=== PATIENT | male | born 1985 | race Caucasian/White ===

== ENCOUNTER 2017-07-24 15:14 | Emergency (ER) | payer OTHER ==
[2017-07-24 15:19] VITALS: BP 142/91; PULSE 75; TEMP 97.7; BMI 26.4
--- NOTE | 2017-07-24 15:37 | PDOC ---
History of Present Illness <Yuri Dumont - Last Filed: 07/24/17 16:46> - General History Source: Patient, Family - History of Present Illness Initial Comments: 07/24/17 16:27 CC: Left knee swelling The patient is a 32 year old male, accompanied by his father, with a significant past medical history of spinal fusion and right knee avulsion fracture who presents to the emergency department complaining of left knee swelling without trauma since yesterday. The patient reports the left knee swelling began yesterday, but when he woke up this morning, the swelling in his knee was abnormally large and unlike previous episodes. The patient describes the swelling as feeling like liquid which radiates above his knee. The patient reports a history of intermittent swelling in his left knee which resolves itself over the last 5-6 months. Of note, the patient has lower leg braces and walks with a cane. The patient denies chest pain, shortness of breath, headache, and dizziness. Denies fevers, chills, nausea, vomiting, diarrhea, and constipation. Allergies: Sulfonamide Antibiotics. Past surgical history: Spinal Fusion (L1 level), Right knee avulsion fracture Social history: Patient admits to everyday use of cigarettes. No alcohol, or drug use. <Celina Shah - Last Filed: 07/24/17 16:54> - General Chief Complaint: Pain Stated Complaint: LEFT KNEE SWELLING, PAIN Time Seen by Provider: 07/24/17 15:23 Past History - Past Medical History COPD: No - Suicide/Smoking/Psychosocial Hx Smoking History: Current some day smoker Have you smoked in the past 12 months: Yes Number of Cigarettes Smoked Daily: 1 Information on smoking cessation initiated: Yes 'Breaking Loose' booklet given: 07/24/17 Hx Alcohol Use: (social) <Yuri Dumont - Last Filed: 07/24/17 16:46> <Celina Shah - Last Filed: 07/24/17 16:54> - Past Medical History Allergies/Adverse Reactions: Allergies Allergy/AdvReac Type Severity Reaction Status Date / Time Sulfa (Sulfonamide Allergy Verified 07/24/17 15:15 Antibiotics) Home Medications: Ambulatory Orders Nabumetone 750 mg PO BID PRN #20 tablet 07/24/17 Review of Systems - Review of Systems Able to Perform ROS?: Yes Comments:: 07/24/17 16:27 CONSTITUTIONAL: Absent: Fever, Chills, Diaphoresis, Generalized Weakness, Malaise, Loss of Appetite HEENT: Absent: Rhinorrhea, Nasal Congestion, Throat Pain, Throat Swelling, Difficulty Swallowing, Mouth Swelling, Ear Pain, Eye Pain, Visual Changes CARDIOVASCULAR: Absent: Chest Pain, Syncope, Palpitations, Irregular Heart Rate, Lightheadedness , Peripheral Edema RESPIRATORY: Absent: Cough, Shortness of Breath, SOB with Exertion, Orthopnea, Wheezing, Stridor, Hemoptysis GASTROINTESTINAL: Absent: Abdominal pain, Abdominal Distension, Nausea, Vomiting, Diarrhea, Constipation, Melena, Hematochezia GENITOURINARY: Absent: Dysuria, Frequency, Urgency, Hesitancy, Flank Pain, Genital Pain MUSCULOSKELETAL: (+)Swelling in left knee. Absent: Myalgia, Arthralgia, Back pain, Neck Pain SKIN: Absent: Rash, Itching, Pallor HEMEATOLOGIC/IMMUNOLOGIC: Absent: Easy Bleeding, Easy Bruising, Lymphadenopathy, Frequent infections ENDOCRINE: Absent: Unexplained Weight Gain, Unexplained Weight Loss, Heat Intolerance, Cold Intolerance NEUROLOGIC: Absent: Headache, Focal Weakness, Paresthesias, Vertigo, Lightheadedness, Seizure, Mental Status Changes, Incontinence PSYCHIATRIC: Absent: Anxiety, Depression <Celina Shah - Last Filed: 07/24/17 16:54> *Physical Exam - Vital Signs Last Vital Signs Temp Pulse Resp BP Pulse Ox 97.7 F 75 18 142/91 97 07/24/17 15:15 07/24/17 15:15 07/24/17 15:15 07/24/17 15:15 07/24/17 15:15 <Yuri Dumont - Last Filed: 07/24/17 16:46> - Vital Signs Last Vital Signs Temp Pulse Resp BP Pulse Ox 97.7 F 75 18 142/91 97 07/24/17 15:15 07/24/17 15:15 07/24/17 15:15 07/24/17 15:15 07/24/17 15:15 - Physical Exam Comments: GENERAL: The patient is awake, alert, and fully oriented, in no acute distress. HEAD: Normal with no signs of trauma. EYES: Pupils equal, round and reactive to light, extraocular movements intact, sclera anicteric, conjunctiva clear. EXTREMITIES: (+)Lower leg braces bilaterally. (+)Right knee normal in appearance with normal range of motion. (+) Left knee edema. (+)Supra and infrapatellar effusion. (+)Left knee can extend to 170 degrees and can flex to 75 degrees. No erythema. No Warmth. Normal range of motion for upper extremities. NEUROLOGICAL: Normal speech, normal gait. PSYCH: Normal mood, normal affect. SKIN: Warm, Dry, normal turgor, no rashes or lesions noted. <Celina Shah - Last Filed: 07/24/17 16:54> ED Treatment Course - Medications Given in the ED: ED Medications Discontinued Medications Generic Name Dose Route Start Last Admin Trade Name Freq PRN Reason Stop Dose Admin Naproxen 375 mg 07/24/17 16:03 07/24/17 16:25 Naprosyn - PO 07/24/17 16:04 375 mg ONCE ONE Administration <Celina Shah - Last Filed: 07/24/17 16:54> Medical Decision Making - Medical Decision Making 07/24/17 16:46 Patient is a 32-year-old man with a history of an L1 spinal cord injury at age 19. Since that time he has weakness in his lower legs and he wears braces. This puts additional strain on his knees. He has a history of a right knee avulsion fracture treated with arthroscopic surgery. He has been having intermittent left knee swelling on and off over the last 5-6 months. It is generally mild and resolved within a few days. He now has swelling of the left knee for 2 days without any history of trauma. The swelling is more than the previous time so he decided to come to the emergency room. There is no fever or chills, there is no erythema, and there is no history of recent infection. On examination, there is a left knee effusion present. There is no increased warmth, and there is no erythema. Range of motion is mildly decreased. The effusion is not tense. There is no ligament laxity 4. 2 views of the left knee show no fracture or dislocation upon my preliminary review. Final radiology reading is pending at the time of discharge with ER follow-up process activated. Impression: Left knee effusion without signs of infection. Probably ligamentous injury due to increased strain in the setting of prior spinal cord injury with lower extremity weakness below the knees. Patient has been advised to rest, elevate the knee, apply ice packs, take nabumetone, and to follow-up with orthopedic surgery. <Yuri Dumont - Last Filed: 07/24/17 16:46> *DC/Admit/Observation/Transfer - Discharge Dispostion Admit: No <Yuri Dumont - Last Filed: 07/24/17 16:46> - Attestations Scribe Attestion: Documentation prepared by Celina Shah, acting as medical billing clerk for Yuri Dumont MD. <Celina Shah - Last Filed: 07/24/17 16:54> Diagnosis at time of Disposition: Effusion, left knee - Discharge Dispostion Disposition: HOME Condition at time of disposition: Stable - Prescriptions Prescriptions: Nabumetone 750 mg PO BID PRN #20 tablet PRN Reason: knee swelling or pain - Referrals Referrals: Rafat Mann MD [Staff Physician] - 3 days - Patient Instructions Printed Discharge Instructions: DI for Knee Effusion Additional Instructions: You were evaluated today for swelling of the left knee. Your examination shows a buildup of fluid in the knee joint. There is no sign of infection. X-ray showed no fracture. You're advised to elevate the knee, rest as much as possible, apply ice packs for 20-30 minutes every few hours, and take nabumetone twice a day for its anti-inflammatory effect. Follow-up with Dr. Mann, orthopedic surgery, within a few days. Return to the emergency department for any severe or progressive symptoms.
[2017-07-24] MEDS ORDERED: NAPROXEN 375 MG TABLET (FP) PO ONE (16:03)
[2017-07-24] MEDS ORDERED: NAPROXEN 375 MG TABLET (FP) ONE (16:15)
== END 2017-07-24 17:00 | disposition home or self-care (01) ==
LOC: FER 15:14
DX: M25.462 Effusion, left knee (principal); F17.210 Nicotine dependence, cigarettes, uncomplicated
CPT/HCPCS: 73560-TC-LT-FY; 99282-25

== ENCOUNTER 2018-06-08 16:16 | Emergency (ER) | payer OTHER ==
[2018-06-08 16:40] VITALS: BP 141/100; PULSE 90; TEMP 98.3; BMI 23.7
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
--- NOTE | 2018-06-09 11:37 | EKG ---
Test Reason : Blood Pressure : / mmHG Vent. Rate : 073 BPM Atrial Rate : 073 BPM P-R Int : 136 ms QRS Dur : 084 ms QT Int : 376 ms P-R-T Axes : 037 020 011 degrees QTc Int : 414 ms NORMAL SINUS RHYTHM NORMAL ECG NO PREVIOUS ECGS AVAILABLE Confirmed by Peter Mauricio MD ([id number]) on 06/09/2018 11:37:28 AM Referred By: DR BERMUDEZ Confirmed By:Peter Mauricio MD
== END 2018-06-08 20:30 | disposition short-term general hospital (02) ==
LOC: FER 16:16
DX: H33.22 Serous retinal detachment, left eye (principal); Z87.891 Personal history of nicotine dependence; Z99.89 Dependence on other enabling machines and devices
CPT/HCPCS: 93005; 99282-25

== ENCOUNTER 2021-11-25 21:11 | Emergency (ER) | payer OTHER ==
[2021-11-25 21:34] VITALS: BP 132/84; PULSE 65; RESP 18; TEMP 98; BMI 26.9
== END 2021-11-25 22:48 | disposition home or self-care (01) ==
LOC: FER 21:11
DX: S83.91XA Sprain of unspecified site of right knee, initial encounter (principal); X50.0XXA Overexertion from strenuous movement or load, initial encounter
CPT/HCPCS: 73562-TC-RT-FY; 99283-25